=== PATIENT | female | born 1940 | race Caucasian/White ===

== ENCOUNTER → 2021-03-15 14:04 | Outpatient (CLI) | payer MEDICARE, SELFPAY ==
--- NOTE | 2021-03-15 | DI.MG.S_ITS ---
UNILATERAL LEFT DIGITAL DIAGNOSTIC MAMMOGRAM 3D/2D SHORT-TERM FOLLOW-UP: 03/15/2021 CLINICAL: Short term follow up. Comparison is made to exams dated: 07/20/2020 mammogram - [facility], 05/23/2020 mammogram - [facility], 11/25/2018 mammogram - [facility], and 07/20/2020 ultrasound - [facility]. There are scattered fibroglandular elements in left breast. There is a stable benign 0.9 cm oval equal density asymmetry in the left breast middle depth central to the nipple seen on the craniocaudal view only. The asymmetry is less prominent when compared to the most recent prior exam, and has been stable dating back to at least the prior exam from 06/12/2016, consistent with a benign process. No other significant masses or calcifications are seen in the breast. IMPRESSION: BENIGN There is no mammographic evidence of malignancy. A 1 year screening mammogram is recommended. This exam was interpreted at Station ID: [id number]. NOTE: For mammograms, a report in lay terms will be sent to the patient. Approximately 15% of breast malignancies will not be visualized mammographically. In the management of a palpable breast mass, a negative mammogram must not discourage biopsy of a clinically suspicious lesion. Electronically Signed By: Pradip gale/steven:03/15/2021 16:04:16 letter sent: Normal Exam ACR BI-RADS Category 2: Benign Finding(s) 3342F
== END ==
PROVIDERS: PCP Family Medicine; Referring Provider Family Medicine; Visit Provider Family Medicine
DX: R92.8 Other abnormal and inconclusive findings on diagnostic imaging of breast (principal); N64.89 Other specified disorders of breast
CPT/HCPCS: 77065; G0279

== ENCOUNTER 2025-03-19 10:46 | Emergency (ER) | payer MEDICARE, SELFPAY ==
[2025-03-19] VITALS (14 sets, daily range): BP systolic 143–188; BP diastolic 65–86; PULSE 60–69; RESP 12–23; TEMP 36.6; O2SAT 92–98; BMI 25.3
--- NOTE | 2025-03-19 11:00 | EKG_ITS ---
[place] [address] [address] [place] [address] Test Date: 2025-03-19 Pat Name: Lara Colon Department: Room: Gender: Female Tax Services Professional: : 1940 Requested By: Order Number: [id number] Reading MD: Delbert Vasquez Measurements Intervals [place] Rate: 60 P: [place]: 224 QRS: -55 QRSD: 148 T: 95 QT: 444 QTc: 444 Interpretive Statements Atrial-paced rhythm with prolonged AV conduction Left axis deviation Left bundle branch block Electronically Signed On 03-19-2025 18:30:27 PDT by Delbert Vasquez
--- NOTE | 2025-03-19 11:25 | ED.GENADULT ---
HPI - General Adult General Chief complaint: Extremity Injury, Lower Stated complaint: R/O DVT Time Seen by Provider: 03/19/25 11:05 History of Present Illness HPI narrative: Patient is a 84-year-old female with a past medical history of hypertension diffuse arthritis coming into the ED from home via EMS for evaluation of left leg pain swelling. States that she noticed swelling to her left calf yesterday some swelling, she denies any other symptoms at this time. Patient denies any trauma or falls not on any blood thinners. However she does take 2000 aspirin daily for her chronic arthritis. Related Data Previous Rx's ?Medication ?Instructions ?Recorded cephalexin 500 mg capsule 500 mg PO Q6H 7 days #28 caps 03/19/25 Allergies Allergy/AdvReac Type Severity Reaction Status Date / Time No Known Drug Allergies Allergy Verified 03/19/25 11:00 Review of Systems Review of Systems Narrative: General: Denies fever, chills, weight loss HEENT: Denies headache, eye drainage, eye irritation, head trauma, sore throat, voice change Cardiovascular: Denies any chest pain, palpitations, tachycardia Respiratory: Denies any shortness of breath, cough, wheeze, stridor GI/: Denies any abdominal pain, nausea, vomiting, diarrhea, bright red blood per rectum, melanotic stools, urinary frequency, urinary retention, dysuria, hematuria MSK: Positive left lower extremity swelling Skin: Denies any rashes, lesions, discoloration Neuro: Denies any headache, lightheadedness, dizziness, fainting, weakness Psych: Denies SI/HI Exam Narrative Exam Narrative: General: Cooperative, well-developed, not in acute distress HEENT: Normocephalic, atraumatic, PERRLA, normal sclera, eyelids normal Neck: Active full range of motion, atraumatic Chest: Normal to inspection, negative crepitus, no overlying erythema ecchymosis Respiratory: Normal respiratory effort, not in acute respiratory distress, clear to auscultation bilaterally negative cough, wheeze, tachypnea, rhonchi, rales Cardiology: Regular rate rhythm negative gallop, murmur, rubs GI/: No tenderness to palpation, soft, non rigid, normal to inspection, exam deferred MSK: Full active range of motion in all 4 extremities, atraumatic, no tenderness to palpation of any bony prominences, bilateral lower extremities neurovascularly intact, mild erythema noted to left lower extremity Skin: No rashes or lesions noted Neuro: Alert awake oriented x3, moves all 4 extremities spontaneously, cranial nerves intact, able to answer all questions appropriately follows commands appropriately Psych: Cooperative, negative suicidal or homicidal ideations Initial Vital Signs Initial Vital Signs: Vital Signs Pulse Rate 66 03/19/25 10:52 Pulse Oximetry 92 03/19/25 10:52 Course Orders Ordered: ED Orders 03/19/25 10:55 BMP [Basic Metabolic Panel] Stat CBC Auto Diff [Complete Blood Count AUTO DIFF] Stat PT [Prothrombin Time INR] Stat PTT Partial Thromboplastin Ryley Stat 03/19/25 11:00 EKG-12 Lead Stat 03/19/25 11:25 US periph venous low extrem lt Stat Vital Signs Vital signs: Vital Signs - 8 hr 03/19/25 10:52 03/19/25 10:53 03/19/25 10:53 Temperature Pulse Rate 66 66 Respiratory Rate Blood Pressure 188/86 H Pulse Oximetry 92 97 Oxygen Delivery Method 03/19/25 10:56 03/19/25 10:56 03/19/25 10:59 Temperature 97.8 F Pulse Rate 62 65 Respiratory Rate 23 20 Blood Pressure 174/79 H 160/77 H Pulse Oximetry 98 96 Oxygen Delivery Method Room Air 03/19/25 11:00 03/19/25 11:00 03/19/25 11:30 Temperature Pulse Rate 60 60 Respiratory Rate 12 Blood Pressure 160/77 H Pulse Oximetry 98 95 Oxygen Delivery Method 03/19/25 11:31 03/19/25 11:31 03/19/25 12:00 Temperature Pulse Rate 60 60 Respiratory Rate 22 17 Blood Pressure 155/73 H Pulse Oximetry 95 98 Oxygen Delivery Method 03/19/25 12:00 03/19/25 12:08 03/19/25 12:08 Temperature Pulse Rate 60 Respiratory Rate 22 Blood Pressure 164/75 H 150/65 H Pulse Oximetry 97 Oxygen Delivery Method 03/19/25 12:30 03/19/25 12:30 03/19/25 13:00 Temperature Pulse Rate 62 60 Respiratory Rate Blood Pressure 143/65 H Pulse Oximetry 96 96 Oxygen Delivery Method 03/19/25 13:01 03/19/25 13:01 03/19/25 13:30 Temperature Pulse Rate 60 67 Respiratory Rate Blood Pressure 171/71 H Pulse Oximetry 95 96 Oxygen Delivery Method Room Air Medical Decision Making Differential Diagnosis Differential Diagnosis: Cellulitis, DVT, electrolyte abnormality Lab Data 03/19/25 10:55 03/19/25 10:55 Labs: Lab Results 03/19/25 Range/Units 10:55 WBC 7.3 (4.5-11.0) X10^3/uL RBC 3.79 L (4.0-5.2) X10^6/uL Hgb 11.1 L (12.0-16.0) g/dL Hct 33.4 L (36-46) % MCV 88.2 (80-100) fL MCH 29.3 (26-34) PG MCHC 33.2 (30-36) % RDW 12.9 (11.6-14.8) % Plt Count 235 (150-400) X10^3/uL Neut % (Auto) 60.5 (50-75) % Lymph % (Auto) 21.3 L (25-40) % [place] % (Auto) 9.4 (3-14) % Eos % (Auto) 7.7 H (2-4) % Baso % (Auto) 1.1 (0-2) % Neut # (Auto) 4400 (7655-0641) /uL Lymph # (Auto) 1600 (9782-2618) /uL [place] # (Auto) 700 (0-900) /uL Eos # (Auto) 600 H (0-450) /uL Baso # (Auto) 100 (0-100) /uL PT 10.9 (9.4-12.5) SECONDS INR 1.0 (0.9-1.3) APTT 30 (25.1-36.5) SECONDS Sodium 133 L (137-145) mmol/L Potassium 4.3 (3.4-5.1) mmol/L Chloride 101 (98-107) mmol/L Carbon Dioxide 25 (22-32) mmol/L BUN 25 H (7-17) mg/dL Creatinine 0.79 (0.52-1.04) mg/dL Estimated GFR > 60 (>60) mL/min BUN/Creatinine Ratio 31.6 H (6-22) Glucose 99 (70-99) mg/dL Calcium 8.8 (8.4-10.2) mg/dL Imaging Data US - DVT: Radiologist's Impression: [address] [address] Ultrasound Report Signed Patient: Lara Colon MR#: [id number] : 1940 Acct:[id number] Age/Sex: 84 / F Date of Service: 03/19/25 Loc: ED Accession Number: [id number] Procedure: US periph venous low extrem lt Ordering Provider: Markell Holloway D.O. PROCEDURE: US PERIPH VENOUS LOW EXTREM LT INDICATIONS: swelling pain r/o DVT TECHNIQUE: Real-time imaging, as well as color and pulse Doppler interrogation, were performed of the lower extremity deep veins from the inguinal ligament to the popliteal fossa, with documentation of the visualized calf veins. COMPARISON: None. FINDINGS: The common femoral, femoral, popliteal, and the visualized calf veins are normally compressible, and free of intraluminal thrombus. Color and pulse Doppler demonstrate normal phasic intraluminal flow. There is normal augmentation response to distal compression maneuver. IMPRESSION: No findings of lower extremity deep venous thrombosis. ECG Data Interpretation: EKG interpreted ED physician atrially paced at 60 no STEMI MDM Narrative Medical decision making narrative: Patient is a 84-year-old female history of diffuse arthritis hypertension presenting from home for evaluation of left lower extremity swelling pain started yesterday is concerned she has a DVT. To note she does take 2000 mg of aspirin daily for her history of diffuse arthritis. He denies any trauma or falls. Patient did have ultrasound and lab work performed here in the emergency department. Ultrasound negative for DVT, patient's exam does show some mild swelling however no other gross deformity. Patient is neurovascularly intact to bilateral lower extremities. Given patient with mild erythema to the left lower extremity we will treat her for cellulitis, patient was given strict return precautions she verbalized understanding of this and agrees to being discharged home with outpatient follow up Discharge Plan Departure Patient Disposition: Home Clinical Impression: Cellulitis of left leg Instructions: DI for Cellulitis -- Adult Activity Restrictions/Additional Instructions: Please follow up with your primary care doctor Please read the discharge instructions sheet carefully and bring all papers to all doctor follow-up visits, as it may contain information that your doctor may want to see. Disease processes change and evolve, if your symptoms worsen or if you develop any new symptoms that are concerning to you please return for evaluation. Your evaluation today does not show any evidence of any life-threatening/serious illnesses requiring admission to the hospital or surgery. Please follow-up with your doctor for re-evaluation in approximately 1 day. Seek immediate medical attention for any worrisome symptoms. *If you do not have a primary care provider please contact the [facility] Resource line at [phone]. They will ask some questions about your medical history and help get you set up with a doctor in the community. Prescriptions: New cephalexin 500 mg capsule 500 mg PO Q6H 7 Days Qty: 28 0RF Referrals: Marin Wolff MD [Primary Care Provider, Family Practice] Stand Alone Forms: Patient Portal/API
--- NOTE | 2025-03-19 11:42 | PC.NURSE ---
Patient reports taking 2000 of aspirin a day. 1000 in the morning and 1000 at night. Patient reports history of osetoarthiritis.
[2025-03-19 11:48] LABS: INR 1.0 (0.9-1.3); Prothrombin Time 10.9 SECONDS (9.4-12.5)
[2025-03-19 11:50] LABS: PTT Partial Thromboplastin Tim 30 SECONDS (25.1-36.5)
[2025-03-19 11:53] LABS: Add Manual Diff / Slide Review NO; Blood Urea Nitrogen 25 mg/dL (7-17); Calcium 8.8 mg/dL (8.4-10.2); Carbon Dioxide 25 mmol/L (22-32); Chloride 101 mmol/L (98-107); Estimated Glomerular Filt Rate > 60 mL/min (>60); Glucose 99 mg/dL (70-99); HEMOLYSIS 33 (0-50); Hematocrit 33.4 % (36-46); Hemoglobin 11.1 g/dL (12.0-16.0); Lymphocytes Absolute Auto 1600 /uL (1100-4500); Mean Corpuscular HGB Conc 33.2 % (30-36); Mean Corpuscular Hemoglobin 29.3 PG (26-34); Mean Corpuscular Volume 88.2 fL (80-100); Platelet Count 235 X10^3/uL (150-400); Potassium 4.3 mmol/L (3.4-5.1); Sodium 133 mmol/L (137-145)
--- NOTE | 2025-03-19 14:43 | EKG_ITS ---
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
--- NOTE | 2025-03-19 14:43 | PC.NURSE ---
Patient requesting air transport back to [facility]. States she [place] unable to [place] ferry due to traffic and her concerns with her chronic osteoarthritis. evp general counsel Jzaz Castro made aware and goes to talk with the patient.
--- NOTE | 2025-03-19 15:42 | PC.NURSE ---
This BUSINESS PLANNING ANALYST entered patient room to obtain last set of vital signs prior to discharge. This BUSINESS PLANNING ANALYST attempted twice and patient refused both times. Patient then began to get out of bed by herself and started to undress. This BUSINESS PLANNING ANALYST offered to assist patient and patient declined and dressed herself. Patient told this BUSINESS PLANNING ANALYST to take out this IV out or I will rip it out myself. This BUSINESS PLANNING ANALYST asked patient to not take out IV by herself because she could get hurt. 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 This BUSINESS PLANNING ANALYST assisted patient only to place coban around arm. Patient then stood up and continued to dress herself. Patient removed her own purewick without assistance from BUSINESS PLANNING ANALYST. Patient then asked for a wheelchair to go to the bathroom. This BUSINESS PLANNING ANALYST brought a wheelchair and patient was able to stand and walk across the room to get in to the wheelchair. This BUSINESS PLANNING ANALYST wheeled patient to the bathroom and patient stated that she did not need assistance so this BUSINESS PLANNING ANALYST waited outside of the bathroom until patient was finished. This BUSINESS PLANNING ANALYST then wheeled patient back to her room where she and spouse grabbed belongings and were taken to the waiting room to wait for a taxi. RN notified of events.
== END 2025-03-19 15:24 | disposition home or self-care (01) ==
PROVIDERS: Emergency Provider Student in an Organized Health Care Education/Training Program; PCP Family Medicine
DX: L03.116 Cellulitis of left lower limb (principal)
CPT/HCPCS: 36415; 80048; 85025; 85610; 85730; 93005; 93971; 99284